=== PATIENT | female | born 1970 | race Caucasian/White ===

== ENCOUNTER 2023-08-19 08:41 | Day surgery (SDC) | payer OTHER ==
[~2023-08-19] VITALS: Ht 165.1 cm; Wt 71.7 kg
[2023-08-19] MEDS: MIDAZOLAM 2 MG/2 ML VIAL IVP SCH (09:32)
[2023-08-19] MEDS: LIDOCAINE 2% 100 MG/5 ML UJET TP SCH (09:33)
[2023-08-19] MEDS: fentaNYL citrate 0.05 MG/ML VIAL IVP ONE (09:33)
[2023-08-19] MEDS: diphenhydrAMINE 50 MG/ML VIAL IVP ONE (09:34)
[2023-08-19] MEDS ORDERED: fentaNYL citrate 0.05 MG/ML VIAL ONE (13:38)
[2023-08-19] MEDS ORDERED: diphenhydrAMINE 50 MG/ML VIAL ONE (13:38)
[2023-08-19] MEDS ORDERED: LIDOCAINE 2% 100 MG/5 ML UJET TP ONE (13:38)
[2023-08-19] MEDS ORDERED: MIDAZOLAM 5 MG/5 ML VIAL ONE (13:38)
== END 2023-08-19 10:40 | disposition home or self-care (01) ==
LOC: MDS 08:41 → MMU 08:41 → MDS 10:40
PROVIDERS: ATTEND Internal Medicine Gastroenterology
DX: Z12.11 Encounter for screening for malignant neoplasm of colon (principal); K63.5 Polyp of colon; G40.909 Epilepsy, unspecified, not intractable, without status epilepticus; Z90.710 Acquired absence of both cervix and uterus; Z79.899 Other long term (current) drug therapy
CPT/HCPCS: J1200; J2250; J3010

== ENCOUNTER 2024-04-17 13:40 | Emergency (ER) | payer OTHER ==
[~2024-04-17] VITALS: Ht 162.6 cm; Wt 78.9 kg
[2024-04-17 13:55] VITALS: BP 137/71; PULSE 72; RESP 72; TEMP 98; O2SAT 96
[2024-04-17] MEDS: KETOROLAC 30 MG/ML VIAL IM ONE (14:37)
[2024-04-17] MEDS ORDERED: METH-1681 PO (15:37)
[2024-04-17] MEDS ORDERED: IBUP-2213 PO (15:37)
[2024-04-17 16:24] VITALS: BP 137/71; PULSE 72; RESP 72; TEMP 98; O2SAT 96
== END 2024-04-17 16:27 | disposition home or self-care (01) ==
LOC: MED 13:40
DX: S29.011A Strain of muscle and tendon of front wall of thorax, initial encounter (principal); R03.0 Elevated blood-pressure reading, without diagnosis of hypertension; Z86.69 Personal history of other diseases of the nervous system and sense organs; W01.0XXA Fall on same level from slipping, tripping and stumbling without subsequent striking against object, initial encounter; Y92.34 Swimming pool (public) as the place of occurrence of the external cause; Y93.89 Activity, other specified; Y99.8 Other external cause status
CPT/HCPCS: 71101; 81025; 96374; 99283; J1885

== ENCOUNTER 2024-07-15 14:32 | Emergency (ER) | payer OTHER ==
[~2024-07-15] VITALS: Ht 160 cm; Wt 79.4 kg
[~2024-07-15 14:32] MED LIST: IBUP-2213 PO; METH-1681 PO
[2024-07-15 14:45] VITALS: BP 149/65; PULSE 70; RESP 18; TEMP 97.1; O2SAT 97
[2024-07-15 15:40] LABS: APPEARANCE,URINE CLEAR (CLEAR); BILIRUBIN,URINE NEGATIVE (NEGATIVE); BLOOD, URINE NEGATIVE (NEGATIVE); COLOR,URINE YELLOW (YELLOW); LEUKOCYTE ESTERASE ,URINE NEGATIVE (NEGATIVE); NITRITE, URINE NEGATIVE (NEGATIVE); PROTEIN,URINE NEGATIVE (NEGATIVE); UGLUCOSE NEGATIVE (NEGATIVE); UROBILINOGEN,URINE 0.2 EU/dL (0.2 - 1)
[2024-07-15] MEDS: KETOROLAC 30 MG/ML VIAL IM ONE (15:49)
[2024-07-15] MEDS ORDERED: LID5T TP (16:23)
[2024-07-15] MEDS ORDERED: METH-1681 PO (16:23)
[2024-07-15] MEDS ORDERED: IBUP-2213 PO (16:23)
[2024-07-16] MEDS ORDERED: IBUP-2213 PO (10:00)
[2024-07-16] MEDS ORDERED: LID5T TP (10:00)
[2024-07-16] MEDS ORDERED: METH-1681 PO (10:00)
== END 2024-07-15 16:34 | disposition home or self-care (01) ==
LOC: MED 14:32
DX: M54.50 Low back pain, unspecified (principal); E11.9 Type 2 diabetes mellitus without complications; Z86.69 Personal history of other diseases of the nervous system and sense organs; Z79.899 Other long term (current) drug therapy
CPT/HCPCS: 72100; 81003; 96372; 99284; J1885; Q0092